=== PATIENT | male | born 1955 | race Caucasian/White ===

== ENCOUNTER 2021-11-09 13:33 | Emergency (ER) | payer OTHER ==
[2021-11-09 14:09] LABS: #Monocytes 0.6 10x3/uL (0.0-1.1); #Neutrophils 4.4 10x3/uL (1.5-8.4); %Basophils 0.2 % (0.0-2.0); %Eosinophils 0.7 % (0.0-6.0); %Lymphocytes 8.2 % (18.0-47.0); %Monocytes 10.8 % (0.0-10.0); %Neutrophils 79.4 % (40.0-75.0); Hemoglobin 4.3 g/dL (13.5-17.5); Mean Corpuscular HGB CONC 27.6 g/dL (32.0-36.0); Mean Corpuscular Hemoglobin 19.1 pg (27.0-33.0); Mean Corpuscular Volume 69.3 fl (81.2-95.1); Mean Platelet Volume 9.4 fl (7.4-10.4); Platelet Count 216 10x3/uL (150-450); RBC Distribution Width 19.9 % (11.5-14.5); Red Blood Cell (RBC) Count 2.25 10x6/uL (4.32-5.72); White Blood Cell (WBC) Count 5.6 10x3/uL (3.5-10.5)
[2021-11-09 14:19] LABS: ALT (SGPT) 8 U/L (8-55); AST (SGOT) 15 U/L (5-34); Albumin 3.7 g/dL (3.4-4.8); Alkaline Phosphatase 65 U/L (40-110); Anion Gap 12 mmol/L (10-20); BUN (Urea Nitrogen) 12 mg/dL (8.4-25.7); Bilirubin, Total 0.3 mg/dL (0.2-1.2); Calc. Creatinine Clearance 0 mL/min (70-130); Calcium 8.5 mg/dL (7.8-10.44); Carbon Dioxide 21 mmol/L (23-31); Chloride 90 mmol/L (98-107); Globulin 2.8 g/dL (2.4-3.5); Glucose 113 mg/dL (80-115); Potassium 4.7 mmol/L (3.5-5.1); Protein, Total 6.5 g/dL (5.8-8.1)
[2021-11-09 14:30] LABS: Hypochromia MODERATE=16-30 cells (100X) (0-5/hpf); Microcytosis MODERATE=15-30 cells (100X) (0-5/hpf); Polychromasia SLIGHT = 2-3 cells (100X) (0-2/hpf); Sodium 118 mmol/L (136-145)
[2021-11-09 14:31] LABS: Anisocytosis SLIGHT = 6-15 cells (100X) (0-5/hpf); Ovalocytes SLIGHT = 2-5 cells (100X) (0-1/hpf)
[2021-11-09 14:32] LABS: Platelet Morphology Comment Appears Adequate
[2021-11-09 16:48] LABS: SARS-CoV-2 NAA Rapid Test Not Detected (NotDetected)
[2021-11-10] MEDS ORDERED: Acetaminophen 500 MG TAB ONE ×2 (00:35→08:04)
[2021-11-10 06:51] LABS: #Eosinphils 0.1 10x3/uL (0.0-0.5); #Neutrophils 4.5 10x3/uL (1.5-8.4); %Basophils 0.5 % (0.0-2.0); %Lymphocytes 10.8 % (18.0-47.0); %Monocytes 15.7 % (0.0-10.0); %Neutrophils 70.1 % (40.0-75.0); Hemoglobin 6.3 g/dL (13.5-17.5); Mean Corpuscular Volume 70.7 fl (81.2-95.1); Mean Platelet Volume 8.8 fl (7.4-10.4); Platelet Count 193 10x3/uL (150-450); RBC Distribution Width 21.1 % (11.5-14.5); Red Blood Cell (RBC) Count 2.87 10x6/uL (4.32-5.72); White Blood Cell (WBC) Count 6.4 10x3/uL (3.5-10.5)
[2021-11-10 08:31] LABS: ALT (SGPT) 9 U/L (8-55); AST (SGOT) 15 U/L (5-34); Albumin 3.7 g/dL (3.4-4.8); Alkaline Phosphatase 61 U/L (40-110); Anion Gap 13 mmol/L (10-20); BUN (Urea Nitrogen) 14 mg/dL (8.4-25.7); Bilirubin, Total 1.2 mg/dL (0.2-1.2); Calc. Creatinine Clearance 0 mL/min (70-130); Calcium 8.4 mg/dL (7.8-10.44); Carbon Dioxide 18 mmol/L (23-31); Chloride 93 mmol/L (98-107); Glucose 108 mg/dL (80-115); Potassium 4.4 mmol/L (3.5-5.1); Protein, Total 6.7 g/dL (5.8-8.1); Sodium 120 mmol/L (136-145)
[2021-11-10] MEDS ORDERED: Carvedilol 12.5 MG TAB ONE (11:15)
[2021-11-10] MEDS ORDERED: Lisinopril 10 MG TAB ONE (11:16)
== END 2021-11-10 11:21 | disposition short-term general hospital (02) ==
LOC: CSHERS 13:33 → EEVIPCON 13:33 → UNDOADMIN 17:15 → CSHERHOLD 17:15 → CSHERS 11-10 11:21
DX: D64.9 Anemia, unspecified (principal); E87.1 Hypo-osmolality and hyponatremia; Z20.822 Contact with and (suspected) exposure to COVID-19; K21.9 Gastro-esophageal reflux disease without esophagitis; I10 Essential (primary) hypertension; M19.90 Unspecified osteoarthritis, unspecified site; Z79.899 Other long term (current) drug therapy
CPT/HCPCS: 36415; 36430; 80053; 84484; 85025; 86850; 86900; 86901; 93005; P9016; U0002

== ENCOUNTER 2023-04-22 18:04 | Emergency (ER) | payer OTHER ==
[2023-04-22 18:47] LABS: #Eosinphils 0.1 10x3/uL (0.0-0.5); #Monocytes 0.4 10x3/uL (0.0-1.1); #Neutrophils 1.5 10x3/uL (1.5-8.4); %Basophils 0.5 % (0.0-2.0); %Eosinophils 3.3 % (0.0-6.0); %Lymphocytes 44.7 % (18.0-47.0); %Monocytes 9.5 % (0.0-10.0); %Neutrophils 40.9 % (40.0-75.0); Hemoglobin 6.9 g/dL (13.5-17.5); Mean Corpuscular HGB CONC 29.2 g/dL (32.0-36.0); Mean Corpuscular Hemoglobin 19.7 pg (27.0-33.0); Mean Corpuscular Volume 67.4 fl (81.2-95.1); Mean Platelet Volume 9.2 fl (7.4-10.4); Platelet Count 186 10x3/uL (150-450); RBC Distribution Width 20.6 % (11.5-14.5); White Blood Cell (WBC) Count 3.7 10x3/uL (3.5-10.5)
[2023-04-22 18:57] LABS: ALT (SGPT) 16 U/L (8-55); AST (SGOT) 11 U/L (5-34); Albumin 3.8 g/dL (3.4-4.8); Alkaline Phosphatase 52 U/L (40-110); Anion Gap 12 mmol/L (10-20); BUN (Urea Nitrogen) 13 mg/dL (8.4-25.7); Bilirubin, Total 0.3 mg/dL (0.2-1.2); Calc. Creatinine Clearance 0 mL/min (70-130); Calcium 8.4 mg/dL (7.8-10.44); Carbon Dioxide 22 mmol/L (23-31); Chloride 90 mmol/L (98-107); Estimated GFR 90; Globulin 2.7 g/dL (2.4-3.5); Glucose 107 mg/dL (80-115); Potassium 4.5 mmol/L (3.5-5.1); Protein, Total 6.5 g/dL (5.8-8.1)
[2023-04-22 19:03] LABS: Sodium 119 mmol/L (136-145)
[2023-04-22 19:27] LABS: Anisocytosis SLIGHT = 6-15 cells (100X) (0-5/hpf); Hypochromia MODERATE=16-30 cells (100X) (0-5/hpf); Poikilocytosis SLIGHT = 6-15 cells (100X) (0-5/hpf)
[2023-04-22 19:28] LABS: Bite Cells SLIGHT = 2-5 cells (100X) (0-1/hpf); Elliptocytes SLIGHT = 2-5 cells (100X) (0-1/hpf); Polychromasia SLIGHT = 2-3 cells (100X) (0-2/hpf); Tear Drops SLIGHT = 2-5 cells (100X) (0-1/hpf)
[2023-04-22 19:29] LABS: Platelet Adequacy Comment Appears Adequate
== END 2023-04-22 21:15 ==
LOC: CSHERS 18:04
DX: D64.9 Anemia, unspecified (principal); E87.1 Hypo-osmolality and hyponatremia; I10 Essential (primary) hypertension; J44.9 Chronic obstructive pulmonary disease, unspecified; I25.10 Atherosclerotic heart disease of native coronary artery without angina pectoris; Z87.891 Personal history of nicotine dependence
CPT/HCPCS: 36415; 36430; 80053; 85025; 86850; 86900; 86901; 99284; P9016